=== PATIENT | male | born 1950 | race Caucasian/White ===

== ENCOUNTER 2019-05-21 13:54 | Emergency (ER) | payer SELFPAY ==
--- NOTE | 2019-05-21 17:03 | UC ---
Respiratory Complaint HPI - HPI Summary HPI Summary: 69-year-old male presents for a syncopal episode. Patient was brought in by a friend who reports that she found him on the floor unresponsive. Patient states he stood up to answer the phone when he passed out. Denies any injury. Patient states that for the past week he has been having a fatigue, cough, shortness of breath with minimal exertion, generalized chest pain with pleuritic type pain to the left lower chest, and dizziness with changes in position. Denies fever, chills, nasal congestion, sore throat, palpitations, diaphoresis, abdominal pain, nausea, vomiting, or diarrhea. - History of Current Complaint Chief Complaint: UCGeneralIllness Stated Complaint: BODY ACHES,CHEST CONGESTION Time Seen by Provider: 05/21/19 16:48 Hx Obtained From: Patient Pain Intensity: 8 - Allergies/Home Medications Allergies/Adverse Reactions: Allergies Allergy/AdvReac Type Severity Reaction Status Date / Time No Known Allergies Allergy Verified 05/21/19 16:46 Home Medications: Home Medications Ibuprofen TAB* [Motrin TAB* 600 MG] 600 mg PO Q8H PRN 05/21/19 [History Confirmed 05/21/19] PMH/Surg Hx/FS Hx/Imm Hx Previously Healthy: Yes - Denies significant PMH - Surgical History Surgical History: None - Family History Known Family History: Positive: Non-Contributory - Social History Occupation: Retired Lives: Alone Alcohol Use: None Substance Use Type: None Smoking Status (MU): Never Smoked Tobacco Review of Systems All Other Systems Reviewed And Are Negative: Yes Constitutional: Positive: Fatigue. Negative: Fever, Chills Eyes: Negative: Drainage, Eye Redness ENT: Negative: Sore Throat, Ear Ache, Nasal Discharge, Sinus Congestion, Sinus Pain/Tenderness Respiratory: Positive: Shortness Of Breath, Cough Cardiovascular: Positive: Chest Pain. Negative: Palpitations Gastrointestinal: Negative: Abdominal Pain, Vomiting, Diarrhea, Nausea Genitourinary: Positive: Negative Musculoskeletal: Positive: Negative Neurological: Positive: Negative Is Patient Immunocompromised?: No Physical Exam - Summary Physical Exam Summary: GENERAL APPEARANCE: Well developed, well nourished, alert and cooperative, and appears to be in no acute distress. EYES: Conjunctiva clear. No drainage. EARS: External auditory canals and tympanic membranes clear, hearing grossly intact. NOSE: No nasal discharge. THROAT: Pharynx normal. No tonsilar inflammation, swelling, exudate, or lesions. Uvula midline. NECK: Neck supple, non-tender without lymphadenopathy. CARDIAC: Normal S1 and S2. No S3, S4 or murmurs. Rhythm is regular. There is no peripheral edema, cyanosis or pallor. Extremities are warm and well perfused. Capillary refill is less than 2 seconds. Peripheral pulses intact. LUNGS: Diminished basilar lung sounds with the left more prominent than the right. ABDOMEN: Positive bowel sounds. Soft, nondistended, nontender. No guarding or rebound. No masses or hepatosplenomegally. MUSKULOSKELETAL: ROM intact to all extremities. No joint erythema or tenderness. Normal muscular development. Normal gait. SKIN: Skin normal color, texture and turgor with no lesions or eruptions. Triage Information Reviewed: Yes Vital Signs: Initial Vital Signs Temp 99.4 F 05/21/19 16:41 Pulse 103 05/21/19 16:41 Resp 30 05/21/19 16:41 BP 149/70 05/21/19 16:41 Pulse Ox 89 05/21/19 16:41 Vital Signs Reviewed: Yes Diagnostics - EKG Cardiac Rate: Tachycardia Cardiac Rhythm: Sinus: Normal Ectopy: None ST Segment: Non-Specific - Mild ST depression in lateral leads EKG Comparison: Other - No previous for comparison Respiratory Course/Dx - Course Course Of Treatment: 69-year-old male presents for a syncopal episode. Patient was brought in by a friend who reports that she found him on the floor unresponsive. Patient states he stood up to answer the phone when he passed out. Denies any injury. Patient states that for the past week he has been having a fatigue, cough, shortness of breath with minimal exertion, generalized chest pain with pleuritic type pain to the left lower chest, and dizziness with changes in position. Denies fever, chills, nasal congestion, sore throat, palpitations, diaphoresis, abdominal pain, nausea, vomiting, or diarrhea. Afebrile. Mildly hypertensive at 149/70, tachycardic at a rate of 103, tachypnic at a rate of 30 , and was hypoxic with a pulse ox of 88-89% on room air. Patient was placed on 2 L of oxygen via nasal cannula. On exam patient was ill-appearing, tachypneic without labored respirations or accessory muscle use, he had an diminished bilateral breath sounds in the bases with the left more prominent than the right , he was tachycardic with a normal S1 and S2 without murmurs or extra sounds, and otherwise unremarkable exam. 12-lead EKG showed a sinus tachycardia with some mild ST depression in the lateral leads. No ectopy or ST elevations noted. No prior EKG for comparison. Fingerstick glucose was 202. Rapid flu test was negative. Discussed with patient that based on his history and exam I feel he should be urgently evaluated in the emergency room at this time and have recommended transport via EMS. Patient was agreeable to this. Discussed case with Yovani Ivan NP at the [facility] emergency room who accepts patient care upon arrival. - Differential Dx/Diagnosis Differential Diagnosis/HQI/PQRI: Bronchitis, Pulmonary Edema, Influenza, Lower Resp Infection, Pulmonary Embolism Provider Diagnosis: Syncope, Hypoxia - Physician Notification/Consults Discussed Patient Care With: Duy Ivan Time Discussed With Above Provider: 17:20 Instructed by Provider To: MD Will See In ED Discharge ED - Sign-Out/Discharge Documenting (check all that apply): Patient Departure All imaging exams completed and their final reports reviewed: No Studies - Discharge Plan Condition: Guarded Disposition: TRANS HIGHER LVL OF CARE FAC Referrals: No Primary Care Phys,NOPCP [Primary Care Provider] - - Billing Disposition and Condition Condition: GUARDED Disposition: Trans Higher Lvl of Care Fac
[2019-05-21] MEDS ORDERED: Albuterol/Ipratropium NEB.SOL* Albuterol 2.5 MG/Ipratropium 0.5 MG 3 ML INH ONE (17:11)
[2019-05-21 17:16] VITALS: BP 150/78
[2019-05-21 17:21] LABS: Influenza A Molecular Negative (Negative); Influenza B Molecular Negative (Negative)
== END 2019-05-21 17:23 | disposition short-term general hospital (02) ==
LOC: UCCORT 13:54
DX: R09.02 Hypoxemia (principal); R55 Syncope and collapse; R53.83 Other fatigue; R06.02 Shortness of breath; R05 Cough; R07.9 Chest pain, unspecified; I10 Essential (primary) hypertension
CPT/HCPCS: 93005; 99203; A9270-GY; G0463